=== PATIENT | male | born 1930 | race Caucasian/White ===

== ENCOUNTER 2017-08-02 12:10 | Inpatient (IN) | payer MEDICARE ==
[~2017-08-02] VITALS: Ht 177.8 cm; Wt 90.8 kg
[~2017-08-02 12:10] MED LIST: ACTOS15 MG PO; ACTOS30 MG PO; ALTACE10 M1 PO; BABY ASPIRIN81 MG PO; BAYER ASPIRIN325 MG PO; FISH OIL1000 M1 PO; FLUARIX QUADRIV1 INJ IM; FLUZONE SPLT1 M1 IM; FLUZONE1 M1 IM; FREESTYLELITE100 XX; GLIPIZIDE ER10 M1 PO; NORVASC10 M1 PO; VITAMIN D1000 UNIT OR; [UNRECOGNIZED DRUG - CODE] PO
--- NOTE | 2017-08-02 12:24 | NUR ---
PT ARRIVED TO FLOOR VIA WC ACCOMPANIED BY STAFF MEMBER AND FAMILY;PT NOTED TO BE HARD OF HEARING;PT DENIES ANY PAIN AT THIS TIME;ORIENTED TO ROOM AND CALL LIGHT SYSTEM;WILL CONTINUE TO MONITOR
[2017-08-02 12:47] VITALS: BP 143/62
--- NOTE | 2017-08-02 13:00 | NUR ---
PT RESTING IN SUPINE POSITION WITH FAMILY AT BEDSIDE;ASSESSMENT COMPLETED;RESPIRATIONS EVEN AND UNLABORED ON RA,CLEAR/DIMINISHED LUNG SOUNDS NOTED;ABDOMEN SOFT ON PALPATION AND ACTIVE IN ALL 4 QUADRANTS;WEAK PEDAL PULSES;CELLULITIS NOTED TO RIGHT ARM, RED AND WARM TO TOUCH;DEMARCATION LINE APPLIED;PHOTOGRAPHS TAKEN AND PLACED IN CHART AND RIGHT ARM ELEVATED ON X2 PILLOWS;#22G TO LAC STARTED ON 1ST ATTEMPT,SITE HEALTHY;GENERALIZED DRYNESS AND SCABBING NOTED THROUGHOUT BODY;PT DENIES ANY PAIN OR DISCOMFORTS TO AFFECTED LIMB,PAIN SCALE AND REPORTING EDUCATED;ALL SAFETY PRECAUTIONS REINFORCED;URINAL AT BEDSIDE;PT ENCOURAGED TO CALL FOR ASSISTANCE IF NEEDED;FALL PRECAUTIONS IN PLACE;CALL LIGHT IN REACH;WILL CONTINUE TO MONITOR
[2017-08-02 13:08] LABS: HEMATOCRIT 40.1 % (39.0-50.0); HEMOGLOBIN 12.8 g/dl (14.0-18.0); IMMATURE GRANULOCYTES 3.1 % (0.0-1.0); MEAN CORPUSCULAR HGB 29.4 pG CALC (26.0-32.0); MEAN CORPUSCULAR HGB CONC 31.9 g/L CALC (32.0-36.0); NEUT# 16.22 thou/uL (1.82-7.42); RED BLOOD COUNT 4.36 mill/uL (4.70-6.10); RED CELL DISTRI WIDTH 13.5 % (11.5-15.5)
[2017-08-02 13:25] LABS: ALBUMIN 2.8 g/dL (3.2-5.0); ALKALINE PHOSPHATASE 100 u/l (38-126); ANION GAP 16 (6-22 (CALC)); BILIRUBIN, TOTAL 0.5 mg/dL (0.0-1.4); BUN 31 mg/dL (8-23); BUN/CREATININE RATIO 41 (12-20 (CALC)); CARBON DIOXIDE 31 mmol/l (22-30); CHLORIDE 98 mmol/l (95-108); CREATININE 0.8 mg/dL (0.7-1.3); GFR > 60 ML/MIN (>=60 (CALC)); GFR FOR AFR.AMER. > 60 ML/MIN (>=60 (CALC)); POTASSIUM 4.3 mmol/l (3.5-5.1); SGOT/AST 15 u/l (19-48); SGPT/ALT 37 u/l (11-66); SODIUM 140 mmol/l (137-146); TOTAL PROTEIN 6.4 g/dL (6.3-8.2)
--- NOTE | 2017-08-02 14:13 | NUR ---
PT TAKEN TO ULTRASOUND VIA WC ACCOMPANIED BY STAFF MEMBER
--- NOTE | 2017-08-02 14:40 | NUR ---
PT ARRIVED BACK TO FLOOR IN STABLE CONDITION;FERNANDO CARE PROVIDED,BARRIER CREAM APPLIED AND PT RE-POSITIONED BACK INTO BED;PT DENIES ANY OTHER CURRENT NEEDS; WILL CONTINUE TO MONITOR
[2017-08-02 15:05] VITALS: BP 123/68
--- NOTE | 2017-08-02 18:00 | NUR ---
PT RESTING IN HIGH FOWLERS POSITION EATING DINNER WITH FAMILY AT BEDSIDE;IV SITE PATENT;RIGHT ARM REMAINS ELEVATED ON X2 PILLOWS;RESPIRATIONS EVEN AND UNLABORED ON RA;PT DENIES ANY PAIN OR DISCOMFORTS;BED IN THE LOWEST POSITION WITH CALL LIGHT IN REACH;WILL CONTINUE TO MONITOR
[2017-08-02 19:00] VITALS: BP 109/54
--- NOTE | 2017-08-02 20:00 | NUR ---
PATIENT RESTING IN BED AT THIS TIME WITH RIGHT HAND ELEVATED ON PILLOWS. HAND AND FOREARM ARE SWOLLEN,WARM TO TOUCH. CMS TO FINGERS ARE WNL. PULSE TO RIGHT RADIAL PRESENT. PATIENT IS AWAKE ALERT AND ORIENTED TO PERSON AND PLACE. FAMILY AT BEDSIDE VISITING. IV SITE TO LEFT AC INTACT WITH VANCO RUNNING AT THIS TIME. SITE APPEARS HEALTHY AT THIS TIME. PATIENT STATES THAT HIS RIGHT HAND IS FEELING BETTER. SAFETY PRECAUTIONS REINFORCED. CALL LIGHT IN REACH. WILL CONT TO MONITOR.
--- NOTE | 2017-08-03 01:19 | NUR ---
PATIENT COMING OUT OF HIS ROOM TOWARD THE NURSING STATION-STATES THAT HE HAS TO GO TO THE BR-ATTEMPT TO REORIENT THE PATIENT AND ASSISTED BACK TO HIS ROOM. PATIENT IS UNSTEADY ON HIS FEET. PATIENT ASSISTED WITH URINAL AND VOIDED YELLOW URINE. LINENS ON THE BED ARE SOILED AND LINENS CHANGED WHILE PATIENT SITTING UP IN THE CHAIR. ASSISTED BACK TO THE BED AND BED ALARM PLACED FOR PATIENT SAFETY. RIGHT HAND ELEVATED ON PILLOWS. CALL LIGHT IN REACH. WILL CONT TO MONITOR.
--- NOTE | 2017-08-03 03:35 | NUR ---
BED ALARM GOING OFF AND STAFF RESPONDED TO ROOM-PATIENT IS CONFUSED-REORIENTED TO PLACE AND TIME. ASSISTED PATIENT BACK TO BED AND REPLACED BED ALARM FOR PATIENT SAFETY. CALL LIGHT IN REACH. WILL CONT TO MONITOR.
--- NOTE | 2017-08-03 04:47 | NUR ---
PATIENT APPEARS SLEEPING AT THIS TIME WITH HOB ELEVATED AND EYES CLOSED. RIGHT HAND ELEVATED ON PILLOWS. BED ALARM IN PLACE FOR PATIENT SAFETY. CALL LIGHT IN REACH, WILL CONT TO MONITOR. N
--- NOTE | 2017-08-03 05:01 | NUR ---
BED ALARM IS GOING OFF AGAIN AND PATIENT IS ATTEMPTING TO GET OOB TO URINATE. VOIDED 125CC IN URINAL WITH ASSIST. BACK TO BED. RIGHT ARM ELEVATED ON PILLOW. BED ALARM REAPPLIED. CALL LIGHT IN REACH. WILL CONT TO MONITOR.
--- NOTE | 2017-08-03 05:03 | NUR ---
PATIENT REQUESTING NEB TREATMENT AND RESP CALLED. RESTING IN BED. CALL LIGHT IN REACH. WILL CONT TO MONITOR.
[2017-08-03 05:04] VITALS: BP 135/44
[2017-08-03 05:15] LABS: HEMATOCRIT 38.1 % (39.0-50.0); HEMOGLOBIN 12.2 g/dl (14.0-18.0); MEAN CELL VOLUME 91.8 fL CALC (80.0-100.0); MEAN CORPUSCULAR HGB 29.4 pG CALC (26.0-32.0); NEUT# 11.97 thou/uL (1.82-7.42); RED BLOOD COUNT 4.15 mill/uL (4.70-6.10); RED CELL DISTRI WIDTH 13.6 % (11.5-15.5)
[2017-08-03 05:29] LABS: ANION GAP 14 (6-22 (CALC)); BUN 27 mg/dL (8-23); BUN/CREATININE RATIO 37 (12-20 (CALC)); CARBON DIOXIDE 30 mmol/l (22-30); CHLORIDE 101 mmol/l (95-108); CREATININE 0.7 mg/dL (0.7-1.3); GFR > 60 ML/MIN (>=60 (CALC)); GFR FOR AFR.AMER. > 60 ML/MIN (>=60 (CALC)); POTASSIUM 4.4 mmol/l (3.5-5.1); SODIUM 140 mmol/l (137-146)
[2017-08-03 07:45] VITALS: BP 164/72
--- NOTE | 2017-08-03 07:45 | NUR ---
PT IS SITTING UP IN THE CHAIR, NO DISTRESS NOTED. IV SITE IS FREE FROM REDNESS OR EDEMA. HR IS REG, PULSES ARE STRONG X4, ABD IS SOFT WITH ACTIVE BS. CONTINUE TO OBSERVE AND MONITOR
--- NOTE | 2017-08-03 12:30 | NUR ---
PT IS RELAXING IN THE CHAIR. NO DISTRESS NOTED. IV SITE IS FREE FROM REDNESS OR EDEMA. FAMILY IN THE ROOM. CONTINUE TO OBSERVE AND MONITOR,
--- NOTE | 2017-08-03 12:56 | NUR ---
S: MAYDA CA is a 86 M who presents with cellulitis of right upper extremity. He has a history of T2DM. All medications in patient's chart were reviewed. O: VS: BP 164/72, P 86, RR 17,T 98.2 W 90.8 kg, HT 70 in, Scr=0.7, CrCl= 52.7 ml/min A: Blood culture is pending. P: Patient is on cefazolin 1 g IV q6h. Vancomycin ordered for pharmacy to dose. Start Vancomycin 1 g IV Q12H. Vancomycin trough is drawn before the 4th dose on 08/04 @0830. Vancomycin goal trough is between 10-15 mcg/ml. Pharmacy will follow and or advise on antibiotics use as needed.
[2017-08-03 15:53] VITALS: BP 128/58
--- NOTE | 2017-08-03 16:02 | NUR ---
PT REMAINS IN THE CHAIR , NO DISTRESS NOTED. IV SITE IS FREE FROM REDNESS OR EDEMA. FAMILY IN THE ROOM.
[2017-08-03 19:00] VITALS: BP 126/49
--- NOTE | 2017-08-03 19:30 | NUR ---
PATIENT SITTING UP IN THE RECLINER WITH FAMILY AT BEDSIDE. PATIENT AWAKE AND ALERT-ORIENTED TO PERSON. RIGHT HAND AND ARM REMAINS SWOLLEN AND DISCOLORED. CMS TO RIGHT FINGERS ARE WNL. ENCOURAGED PATIENT TO KEEP RIGHT HAND AND ARM ELEVATED ON PILLOW. HEP LOCK TO LEFT AC INTACT-APPEARS HEALTHY AT THIS TIME. FAMILY WILL NOTIFY STAFF WHEN LEAVING SO THAT BED ALARM CAN BE SET FOR PATIENT SAFETY. CALL LIGHT IN REACH. WILL CONT TO MONITOR.
--- NOTE | 2017-08-03 20:18 | NUR ---
PATIENT ASSISTED BACK TO BED-BED ALARM PLACED FOR PATIENT SAFETY. SAFETY PRECAUTIONS REINFORCED. CALL LIGHT IN REACH. WILL CONT TO MONITOR.
[2017-08-03 21:58] LABS: URINE BILIRUBIN - DIPSTICK NEGATIVE (NEGATIVE); URINE BLOOD DIPSTICK SMALL (NEGATIVE); URINE COLOR YELLOW; URINE GLUCOSE - DIPSTICK 250 mg/dL (NEGATIVE); URINE KETONE NEGATIVE (NEGATIVE); URINE LEUK ESTERASE NEGATIVE (NEGATIVE); URINE NITRITE - DIPSTICK NEGATIVE (Negative); URINE PROTEIN - DIPSTICK NEGATIVE (NEG-TRACE); URINE SPECIFIC GRAVITY 1.025; URINE UROBILINOGEN - DIPSTICK 0.2 E.U./dL (0.2)
[2017-08-03 22:03] LABS: URINE CLARITY CLEAR; URINE WBC 0-2 WBC/hpf (0-5)
--- NOTE | 2017-08-03 22:45 | NUR ---
RESPONDED TO BED ALARM AGAIN-PATIENT ATTEMPTING TO GET OOB. ASSISTED WITH URINAL AND VOIDED SMALL AMT OF AMT URINE. ASSISTED BACK TO BED AND BED ALARM REAPPLIED FOR PATIENT SAFETY. ANTIBIOTICS INFUSING ORDERED. CALL LIGHT IN REACH. WILL CONT TO MONITOR.
--- NOTE | 2017-08-04 04:00 | NUR ---
AFTER LAB GAYATHRI PATIENT BLOOD WORK PATIENT GOT OOB TO STAND AND URINATE ON THE FLOOR. ASSISTED PATIENT BACK TO THE BED. BED ALRM WAS NOT IN PLACE AT THIS TIME. PATIENT ASSISTED TO STAND AND DID URINATE 200CC OF YELLOW URINE IN URINAL. ASSISTED PATIENT BACK TO BED. ENCOURAGED PATIENT ON USE OF IS-UNABLE TO FOLLOW INSTRUCTIONS AT THIS TIME. SAFETY PRECAUTIONS REINFORCED. BED ALARM PLACED FOR PATIENT SAFETY. ENCOURAGED PATIENT TO KEEP RIGHT HAND AND ARM ELEVATED ON PILLOWS. PATIENT HAVING DIFFICULTY FOLLOWING INSTRUCTIONS AT THIS TIME. CALL LIGHT IN REACH. WILL CONT TO MONITOR.
[2017-08-04 05:28] LABS: HEMATOCRIT 38.5 % (39.0-50.0); HEMOGLOBIN 12.5 g/dl (14.0-18.0); MEAN CELL VOLUME 91.7 fL CALC (80.0-100.0); MEAN CORPUSCULAR HGB 29.8 pG CALC (26.0-32.0); MEAN CORPUSCULAR HGB CONC 32.5 g/L CALC (32.0-36.0); NEUT# 8.78 thou/uL (1.82-7.42); RED BLOOD COUNT 4.2 mill/uL (4.70-6.10); RED CELL DISTRI WIDTH 13.7 % (11.5-15.5)
[2017-08-04 05:29] VITALS: BP 135/63
[2017-08-04 05:49] LABS: ANION GAP 15 (6-22 (CALC)); BUN 21 mg/dL (8-23); BUN/CREATININE RATIO 33 (12-20 (CALC)); CARBON DIOXIDE 30 mmol/l (22-30); CHLORIDE 103 mmol/l (95-108); CREATININE 0.6 mg/dL (0.7-1.3); GFR > 60 ML/MIN (>=60 (CALC)); GFR FOR AFR.AMER. > 60 ML/MIN (>=60 (CALC)); MAGNESIUM 1.7 mg/dL (1.6-2.3); POTASSIUM 4.2 mmol/l (3.5-5.1); SODIUM 144 mmol/l (137-146)
[2017-08-04 06:17] LABS: IMMATURE GRANULOCYTES 7.1 % (0.0-1.0)
--- NOTE | 2017-08-04 07:00 | NUR ---
BEDISDE REPORT RECEIVED BY GORGE. PT IS SLEEPING ON RIGHT SIDE WITH NO S/S OF DISTRESS NOTED. BEDALARM IN PLACE AND CALL LIGHT IN REACH.
[2017-08-04 07:29] VITALS: BP 120/67
--- NOTE | 2017-08-04 08:00 | NUR ---
ASSESSMENT DONE . LUNG SOUND DIMINISHED. 02 AT 2L/MIN VIA NC. PT DENIES PAIN AT THIS TIME. PT IS CONFUSED AND A&O JUST TO SELF AT THIS TIME. # 20 LAC THAT APPEARS HEALTHY. BED ALARM IN PLACE FOR SAFETY AND CALL LIGHT IN REACH.
--- NOTE | 2017-08-04 12:00 | NUR ---
PT IS SITTING IN RECLINER EATING HIS LUNCH WITH NO S/S OF DISTRESS NOTED. IN IN ROOM. PT DENIES NEEDS AT THIS TIME. BED ALARM IN PLACE AND CALL LIGHT IN REACH.
--- NOTE | 2017-08-04 15:03 | NUR ---
Vancomycin single level analysis: Current dose being given: 1000 mg Current dosing interval: 12 hrs Current infusion time (hrs): 2 Single level Trough Data: Trough level obtained: 12 mcg/ml Timing of trough - Number of hours before next dose: 0.08 Hrs Desired peak: 30 mcg/ml Desired trough: 15 mcg/ml Recommendations: Give Vancomycin 1000 mg q 12 hrs. Infuse over 2 hrs NEXT TROUGH WILL BE 08/06/17 @9675
--- NOTE | 2017-08-04 15:50 | NUR ---
PT IS USING A WALKER TO AMBULATE IN THE HALLWAYS WITH A SLOW STEADY GAIT. FAMILY MEMBERS AT SIDE.
[2017-08-04 16:30] VITALS: BP 134/53
[2017-08-04 19:05] VITALS: BP 106/63
--- NOTE | 2017-08-04 20:49 | NUR ---
PT SITTING IN RECLINER CHAIR RESPIRATIONS EVEN AND UNLABORED ON RA. ALERT TO SELF AND PLACE. ORIENTED TO TIME AND DATE, BED ALARM IN PLACE TO PREVENT FALLS, URINAL, CALL LIGHT AND PO FLUIDS IN REACH. ACCUCHECK 249, COVERED WITH 2UNITS OF INSULIN PER SS. VANCOMYCIN INFUSING TO LAC WITH NO COMPLICATIONS, IV SITE HAS GOOD BLOOD RETURN. PT DENIES PAIN TO RIGHT ARM, RIGHT ARM IS DISCOLORED, ELEVATED ON PILLOW. WILL CONTINUE TO MONITOR.
--- NOTE | 2017-08-05 00:19 | NUR ---
PT SITTING IN RECLINER CHAIR, ZOSYN SPIKED AND INFUSING TO LAC WITH NO COMPLICATIONS. PT IS CONFUSED BUT PLEASANT AND FOLLOWS DIRECTIONS. CALL LIGHT IN REACH, BED ALARM IN PLACE.
[2017-08-05 04:05] VITALS: BP 131/63
--- NOTE | 2017-08-05 04:30 | NUR ---
AYAD FROM PHLEBOTOMY IN TO DRAW BLOOD WORK, PT TOLERATED WELL.
[2017-08-05 05:10] LABS: HEMOGLOBIN 12.1 g/dl (14.0-18.0); MEAN CORPUSCULAR HGB 29.3 pG CALC (26.0-32.0); MEAN CORPUSCULAR HGB CONC 31.8 g/L CALC (32.0-36.0); RED BLOOD COUNT 4.13 mill/uL (4.70-6.10); RED CELL DISTRI WIDTH 13.7 % (11.5-15.5)
--- NOTE | 2017-08-05 07:00 | NUR ---
BEDSIDE REPORT RECEIVED BY KARELY. PT IS SITTING IN RECLINER WITH NO S/S OF DISTRESS NOTED. PT DENIES NEEDS AT THIS TIME. BED ALARM IN PLACE FOR SAFETY.
[2017-08-05 07:23] VITALS: BP 135/71
[2017-08-05 07:48] VITALS: BP 135/71
--- NOTE | 2017-08-05 08:00 | NUR ---
ASSESSMENT DONE . RESPS EVEN AND UNLABORED. PT DENIES PAIN AT THIS TIME. PT IS A&O TO SELF AND PLACE. ELEVATED PT LEFT ARM. SAFETY PRECAUTIONS REINFORCED AND BED ALARM IN PLACE. CALL LIGHT IN REACH.
--- NOTE | 2017-08-05 09:34 | NUR ---
Pt seen this am for gait. He was resting in chair and cooperative with treatment. Pt moved sit to stand indep with some difficulty. Ambulated with RW 2x140' with CGA. Pt able to hold walker with R hand. VC required for safety issues yadiel with pushing off chair to stand and to reach back for chair before sitting. Pt left positioned correctly in chair, alarm in place, call aguila and phone/tray in reach. Gait belt and non skid socks in place during treatment.
--- NOTE | 2017-08-05 12:02 | NUR ---
PT IS SITTING IN RECLINER EATING HIS LUNCH WITH NO S/S OF DISTRESS NOTED. PT DENIES NEEDS AT THIS TIME. FAMILY IN ROOM. BED ALARM IN PLACE AND CALL LIGHT IN REACH.
[2017-08-05] MEDS ORDERED: JANUVIA100 MG PO (12:32)
[2017-08-05] MEDS ORDERED: DOXYCYCL HYC100 MG PO (12:32)
[2017-08-05] MEDS ORDERED: FLORASTOR250 M1 PO (12:32)
[2017-08-05] MEDS ORDERED: AUGMENTIN875TAB PO (12:32)
--- NOTE | 2017-08-05 14:23 | NUR ---
Discharge instructions given. Patient verbalizes understanding of same. Discharged in stable condition via Wheelchair to Home with family. All belongings sent with pt.
== END 2017-08-05 14:22 | disposition home or self-care (01) | DRG 603 ==
LOC: MS2 12:10
PROVIDERS: Nurse Practitioner Family; ADMIT Internal Medicine; ATTEND Internal Medicine
DX: L03.113 Cellulitis of right upper limb (principal); E11.65 Type 2 diabetes mellitus with hyperglycemia; F03.90 Unspecified dementia, unspecified severity, without behavioral disturbance, psychotic disturbance, mood disturbance, and anxiety; I10 Essential (primary) hypertension; I25.10 Atherosclerotic heart disease of native coronary artery without angina pectoris; H91.93 Unspecified hearing loss, bilateral; M19.90 Unspecified osteoarthritis, unspecified site; N28.89 Other specified disorders of kidney and ureter; S40.921A Unspecified superficial injury of right upper arm, initial encounter; W22.8XXA Striking against or struck by other objects, initial encounter; Y93.H2 Activity, gardening and landscaping; Y92.007 Garden or yard of unspecified non-institutional (private) residence as the place of occurrence of the external cause; Z79.84 Long term (current) use of oral hypoglycemic drugs; Z85.828 Personal history of other malignant neoplasm of skin; Z87.891 Personal history of nicotine dependence

== ENCOUNTER 2017-10-08 18:38 | Emergency (ER) | payer MEDICARE ==
[~2017-10-08] VITALS: Ht 177.8 cm; Wt 88.0 kg
[~2017-10-08 18:38] MED LIST changes: +AUGMENTIN875TAB PO; +DOXYCYCL HYC100 MG PO; +FLORASTOR250 M1 PO; +JANUVIA100 MG PO
[2017-10-08] MEDS ORDERED: ALTACE10 MG PO (19:07)
[2017-10-08 19:45] VITALS: BP 158/72
== END 2017-10-08 19:45 | disposition home or self-care (01) ==
LOC: ED 18:38
DX: S51.811A Laceration without foreign body of right forearm, initial encounter (principal); E11.9 Type 2 diabetes mellitus without complications; I10 Essential (primary) hypertension; H91.90 Unspecified hearing loss, unspecified ear; W11.XXXA Fall on and from ladder, initial encounter

== ENCOUNTER → 2018-05-17 | Outpatient (REF) | payer MEDICARE ==
[~2018-05-17] MED LIST changes: +ALTACE10 MG PO
[2018-05-17 10:18] LABS: HEMATOCRIT 46.9 % (39.0-50.0); MEAN CELL VOLUME 91.8 fL CALC (80.0-100.0); MEAN CORPUSCULAR HGB 29.4 pG CALC (26.0-32.0); RED BLOOD COUNT 5.11 mill/uL (4.70-6.10); RED CELL DISTRI WIDTH 13.2 % (11.5-15.5)
[2018-05-17 12:06] LABS: TSH, 3RD GENERATION 1.8 uIU/mL (0.47 - 4.68)
== END | disposition home or self-care (01) ==
LOC: LAB 09:36
PROVIDERS: ATTEND Nurse Practitioner
DX: E11.29 Type 2 diabetes mellitus with other diabetic kidney complication (principal); I10 Essential (primary) hypertension